=== PATIENT | female | born 1935 | race Caucasian/White ===

== ENCOUNTER 2019-08-04 21:25 | Inpatient (IN) | payer MEDICARE, BC ==
[~2019-08-04] VITALS: Ht 162.6 cm; Wt 63.6 kg
[~2019-08-04 21:25] MED LIST: ALBU8.5H8 INH; ATOR20TA66 PO; CLON-529 PO; CLOP75TA15 PO; DILT-35 PO; FLUT16SP26 BOTHNARES; GABA300C PO; HYDR25TA4 PO; LISI-600 PO; METO-539 PO; MONT10TA24 PO; PANT40TA4 PO; THEO200T22 PO; ZET10T PO
[2019-08-04] MEDS ORDERED: normal saline 1000ml 1,000 ML IV ONE (21:31)
[2019-08-04] MEDS ORDERED: iohexol 350MG/ML 100ml bottle IV ONE (21:31)
[2019-08-04 22:07] LABS: BASOPHILS # (AUTO) 0.1 X10'3 (0-0.2); BASOPHILS % (AUTO) 0.7 % (0-1); EOSINOPHILS # (AUTO) 0.2 X10'3 (0-0.9); EOSINOPHILS % (AUTO) 1.8 % (0-6); HEMATOCRIT 35.1 % (35.0-45.0); HEMOGLOBIN 11.9 g/dl (12.0-16.0); LYMPHOCYTES # (AUTO) 1.8 X10'3 (1.1-4.8); LYMPHOCYTES % (AUTO) 21.5 % (21-51); MEAN CORPUSCULAR HEMOGLOBIN 27.5 PG (27.0-31.0); MEAN CORPUSCULAR VOLUME 80.9 FL (78-98); MEAN PLATELET VOLUME 7.6 FL (7.4-10.4); MONOCYTES # (AUTO) 1.1 X10'3 (0-0.9); MONOCYTES % (AUTO) 13.1 % (2-12); NEUTROPHILS # (AUTO) 5.3 X10'3 (1.8-7.7); NEUTROPHILS % (AUTO) 62.9 % (42-75); PLATELET COUNT 253 X10'3 (140-440); RED BLOOD COUNT 4.34 X10'6 (4.20-5.60); RED CELL DISTRIBUTION WIDTH 15.4 % (11.5-14.5); WHITE BLOOD COUNT 8.5 X10'3 (4.5-11.0)
[2019-08-04 22:15] LABS: PARTIAL THROMBOPLASTIN TIME 30 SECONDS (22-32)
--- NOTE | 2019-08-04 22:18 | NUR ---
ONE HOUR AFTER ARRIVAL IN ER, PT CONDITION UNCHANGED, VSS AND NEURO STATUS STABLE
[2019-08-04 22:20] LABS: ALANINE AMINOTRANSFERASE 10 U/L (12-78); ALBUMIN 3.2 G/DL (3.4-5.0); ALKALINE PHOSPHATASE 87 IU/L (46-116); ANION GAP 8 (8-16); ASPARTATE AMINO TRANSFERASE 12 U/L (10-37); BILIRUBIN,TOTAL 0.4 MG/DL (0.1-1.0); BLOOD UREA NITROGEN 42 MG/DL (7-18); BUN/CREATININE RATIO 35.6 (6.6-38.0); CALCIUM 8.6 MG/DL (8.5-10.1); CHLORIDE 105 MMOL/L (99-107); CREATININE 1.18 MG/DL (0.40-0.90); GLUCOSE 101 MG/DL (70-104); MAGNESIUM 1.7 MG/DL (1.5-2.4); PHOSPHORUS 3.6 MG/DL (2.3-4.5); POTASSIUM 3.8 MMOL/L (3.5-5.1); SODIUM 138 MMOL/L (135-145); TOTAL CARBON DIOXIDE 25.1 MMOL/L (24-32); TOTAL PROTEIN 6.4 G/DL (6.4-8.2); eGFR 44 ML/MIN
[2019-08-04 22:41] LABS: CLARITY,URINE CLEAR (Clear); COLOR,URINE YELLOW (Yellow); GLUCOSE, URINE NEGATIVE (Neg); KETONES,URINE NEGATIVE (Neg); LEUKOCYTE ESTERASE ,URINE TRACE (Neg); NITRITES, URINE NEGATIVE (Neg); OCCULT BLOOD,URINE NEGATIVE (Neg); PH,URINE 5.5 (4.8-8.0); PROTEIN,URINE NEGATIVE (Neg); UROBILINOGEN,URINE 0.2 E.U/dL (0.2-1.0)
[2019-08-04 22:45] LABS: UA COLLECTION TYPE CLN CATCH MIDSTREAM
[2019-08-04 22:46] LABS: BACTERIA,URINE NONE SEEN /HPF (Neg); RBC,URINE NONE SEEN /HPF (0-2); SQUAMOUS EPITHELIAL CELL,UR FEW /LPF (FEW); WBC,URINE 0-4 /HPF (0-4)
--- NOTE | 2019-08-04 23:18 | NUR ---
PT WITH TELE . FAMILY IN THE ROOM
[2019-08-04] MEDS ORDERED: clopidogrel 75mg tablet PO SCH (23:30)
[2019-08-04] MEDS ORDERED: aspirin 81mg tab.chew PO ONE (23:30)
[2019-08-04] MEDS ORDERED: mag hydrox/Alum hydrox/simeth 30ml oral suspension PO ONE (23:50)
[2019-08-05 01:17] LABS: C-REACTIVE PROTEIN 5.08 MG/DL (0.0-0.5)
--- NOTE | 2019-08-05 03:05 | NUR ---
I have received report from Sandra TENORIO and had the opportunity to ask questions and assume patient care.
[2019-08-05 03:30] VITALS: BP 177/73
[2019-08-05] MEDS ORDERED: albuterol 2.5 MG/3 ML nebule NEB PRN (04:00)
[2019-08-05 06:31] VITALS: BP 143/65
--- NOTE | 2019-08-05 06:33 | NUR ---
Problems reprioritized. Patient report given, questions answered & plan of care reviewed with Fiona TENORIO.
[2019-08-05] MEDS ORDERED: pantoprazole 40mg Tablet.DR PO SCH (07:30)
[2019-08-05 08:00] VITALS: BP 114/54
[2019-08-05] MEDS ORDERED: levoFLOXACIN 250mg tablet PO SCH ×2 (08:00→11:00)
[2019-08-05] MEDS ORDERED: atorvastatin 20mg tablet PO SCH (08:00)
[2019-08-05] MEDS: cloNIDine 0.1 mg tablet PO SCH ×2 (08:00→08:11)
[2019-08-05] MEDS ORDERED: montelukast 10mg tablet PO SCH (08:00)
[2019-08-05] MEDS ORDERED: aspirin 81mg tablet.DR PO SCH (08:00)
[2019-08-05] MEDS: lisinopril 20mg tablet PO SCH ×2 (08:00→08:13)
[2019-08-05] MEDS ORDERED: enoxaparin 40mg/0.4ml syringe SQ SCH (08:00)
[2019-08-05] MEDS ORDERED: ezetimibe 10mg tablet PO SCH (08:00)
[2019-08-05] MEDS ORDERED: clopidogrel 75mg tablet PO SCH ×2 (08:00)
[2019-08-05] MEDS ORDERED: HYDROchlorothiazide 25mg tablet PO SCH (08:00)
[2019-08-05] MEDS ORDERED: metoprolol succinate 25mg (24-HOUR) SR. Tablet PO SCH (08:00)
[2019-08-05] MEDS ORDERED: theophylline anhydrous 100mg ER capsule 24-hour PO SCH (08:00)
[2019-08-05] MEDS ORDERED: gabapentin 300mg capsule PO SCH (08:00)
[2019-08-05] MEDS: diltiazem CD 120mg capsule (once-daily) PO SCH ×2 (08:00→08:11)
[2019-08-05 09:20] LABS: CHOL/HDL RATIO 2.6 (0.00-4.99); CHOLESTEROL 147 MG/DL (0-200); HDL CHOLESTEROL 57 MG/DL (35-60); LDL CHOLESTEROL 82 MG/DL (50-100); TRIGLYCERIDES 51 MG/DL (20-135)
[2019-08-05] MEDS ORDERED: magnesium Cl slow-release 64mg tablet PO PRN (09:35)
[2019-08-05] MEDS ORDERED: magnesium 4gm in 100ml NS 100 ML IV PRN (09:35)
[2019-08-05] MEDS ORDERED: potassium Cl 20 mEq SR tablet PO PRN ×2 (09:35)
[2019-08-05] MEDS ORDERED: potassium CL 10mEq/100ml bag 100 ML IV PRN (09:35)
[2019-08-05] MEDS ORDERED: FLU VACC QS 2019-20 (6 MOS UP) 60 MCG/0.5 ML VIAL IMVAC ONE (10:00)
[2019-08-05] MEDS ORDERED: pneumococcal 23-VAL P-sac vacc 25 mcg/0.5ml vial IMVAC ONE (10:00)
--- NOTE | 2019-08-05 10:22 | NUR ---
DM consult: Patient's A1c is 5.6, DM education not warranted at this time. Will continue to follow. Addendum: 08/05/19 at [address] Amended: Links added.
[2019-08-05 10:31] VITALS: BP 123/51
--- NOTE | 2019-08-05 11:31 | NUR ---
per pt's daughter pt currently has a sinus infection and is being treated with abx
[2019-08-05] MEDS ORDERED: ASPI-1071 PO (12:34)
[2019-08-05] MEDS ORDERED: lactobacillus rhamnosus 10,000 MMU CELLS/CAPSULE PO SCH (20:00)
[2019-08-05] MEDS ORDERED: clopidogrel 75mg tablet PO ONE (23:30)
[2019-08-06] MEDS ORDERED: enoxaparin 30mg/0.3ml syringe SQ SCH (08:00)
== END 2019-08-05 14:45 | disposition home or self-care (01) | DRG 153 ==
LOC: ER 21:26 → ED HOLD 08-05 02:25 → ORTHO 4S 08-05 03:31
PROVIDERS: ADMIT Internal Medicine; ATTEND Family Medicine
PROC: B3251ZZ Computerized Tomography (CT Scan) of Bilateral Common Carotid Arteries using Low Osmolar Contrast (ICD-10-PCS; principal; 2019-08-04)
PROC: B32G1ZZ Computerized Tomography (CT Scan) of Bilateral Vertebral Arteries using Low Osmolar Contrast (ICD-10-PCS; 2019-08-04)
PROC: B3281ZZ Computerized Tomography (CT Scan) of Bilateral Internal Carotid Arteries using Low Osmolar Contrast (ICD-10-PCS; 2019-08-04)
DX: J32.8 Other chronic sinusitis (principal); H02.401 Unspecified ptosis of right eyelid; I10 Essential (primary) hypertension; R91.8 Other nonspecific abnormal finding of lung field; J45.909 Unspecified asthma, uncomplicated; I48.91 Unspecified atrial fibrillation; Z95.1 Presence of aortocoronary bypass graft; Z79.02 Long term (current) use of antithrombotics/antiplatelets; Z86.73 Personal history of transient ischemic attack (TIA), and cerebral infarction without residual deficits; Z79.82 Long term (current) use of aspirin
CPT/HCPCS: 36415; 70450; 70496; 70498; 70544; 70551; 71046; 80053; 80061; 81001; 82948; 83036; 83735; 84100; 84484; 85025; 85610; 85651; 85730; 86140; 87081; 87088; 93005; 93306; 94760; 97116; 97161; 97530; 99285; G0378; J1650; Q9967

== ENCOUNTER 2019-08-10 19:48 | Emergency (ER) | payer MEDICARE, BC ==
[~2019-08-10] VITALS: Ht 162.6 cm; Wt 72.7 kg
[~2019-08-10 19:48] MED LIST changes: +ASPI-1071 PO
[2019-08-10 19:56] VITALS: BP 194/80
[2019-08-10 20:12] LABS: BASOPHILS % (AUTO) 0.4 % (0-1); EOSINOPHILS % (AUTO) 0.3 % (0-6); HEMATOCRIT 37.7 % (35.0-45.0); HEMOGLOBIN 12.6 g/dl (12.0-16.0); LYMPHOCYTES # (AUTO) 1.2 X10'3 (1.1-4.8); LYMPHOCYTES % (AUTO) 10.4 % (21-51); MEAN CORPUSCULAR HEMOGLOBIN 26.8 PG (27.0-31.0); MEAN CORPUSCULAR HGB CONC 33.3 g/dL (33.0-36.5); MEAN CORPUSCULAR VOLUME 80.3 FL (78-98); MEAN PLATELET VOLUME 7.4 FL (7.4-10.4); MONOCYTES # (AUTO) 1.3 X10'3 (0-0.9); MONOCYTES % (AUTO) 11.3 % (2-12); NEUTROPHILS # (AUTO) 9.1 X10'3 (1.8-7.7); NEUTROPHILS % (AUTO) 77.6 % (42-75); PLATELET COUNT 314 X10'3 (140-440); RED BLOOD COUNT 4.69 X10'6 (4.20-5.60); RED CELL DISTRIBUTION WIDTH 15.2 % (11.5-14.5); WHITE BLOOD COUNT 11.8 X10'3 (4.5-11.0)
[2019-08-10 20:23] LABS: ALANINE AMINOTRANSFERASE 14 U/L (12-78); ALBUMIN 3.7 G/DL (3.4-5.0); ALKALINE PHOSPHATASE 93 IU/L (46-116); ANION GAP 10 (8-16); ASPARTATE AMINO TRANSFERASE 9 U/L (10-37); BILIRUBIN,TOTAL 0.4 MG/DL (0.1-1.0); BLOOD UREA NITROGEN 23 MG/DL (7-18); BUN/CREATININE RATIO 20.5 (6.6-38.0); CALCIUM 9.4 MG/DL (8.5-10.1); CHLORIDE 104 MMOL/L (99-107); CREATININE 1.12 MG/DL (0.40-0.90); GLUCOSE 130 MG/DL (70-104); LIPASE 171 U/L (73-393); POTASSIUM 3.6 MMOL/L (3.5-5.1); SODIUM 140 MMOL/L (135-145); TOTAL PROTEIN 7.3 G/DL (6.4-8.2); eGFR 47 ML/MIN
[2019-08-10] MEDS ORDERED: ondansetron/PF 4mg/2ml inj IV ONE (20:45)
[2019-08-10] MEDS ORDERED: piperacillin/tazo 3.375gm/50ml 50 ML IV ONE (20:45)
[2019-08-10] MEDS ORDERED: normal saline 1000ML IV soln IV ONE (20:45)
[2019-08-10] MEDS: morphine 4 MG/ML inj SYRINge IV PRN ×2 (20:53→22:29)
--- NOTE | 2019-08-10 21:00 | NUR ---
PT TO CT
--- NOTE | 2019-08-10 21:18 | NUR ---
back from ct
[2019-08-10] MEDS ORDERED: HYDR-3965 PO (22:07)
[2019-08-10] MEDS ORDERED: AMOX-422 PO (22:07)
[2019-08-10] MEDS ORDERED: ONDA4TAB12 PO (22:07)
[2019-08-10 22:24] LABS: URINE HCG NEGATIVE (NEG)
[2019-08-10 22:31] LABS: CLARITY,URINE CLEAR (Clear); COLOR,URINE YELLOW (Yellow); GLUCOSE, URINE NEGATIVE (Neg); KETONES,URINE NEGATIVE (Neg); LEUKOCYTE ESTERASE ,URINE NEGATIVE (Neg); NITRITES, URINE NEGATIVE (Neg); OCCULT BLOOD,URINE NEGATIVE (Neg); PH,URINE 5.5 (4.8-8.0); PROTEIN,URINE NEGATIVE (Neg); UROBILINOGEN,URINE 0.2 E.U/dL (0.2-1.0)
[2019-08-10 22:34] LABS: UA COLLECTION TYPE CLN CATCH MIDSTREAM
== END 2019-08-10 22:59 | disposition home or self-care (01) ==
LOC: ER 19:48
DX: K57.92 Diverticulitis of intestine, part unspecified, without perforation or abscess without bleeding (principal); I48.91 Unspecified atrial fibrillation; I10 Essential (primary) hypertension; J45.909 Unspecified asthma, uncomplicated; Z86.73 Personal history of transient ischemic attack (TIA), and cerebral infarction without residual deficits; Z95.1 Presence of aortocoronary bypass graft; Z79.82 Long term (current) use of aspirin; Z79.899 Other long term (current) drug therapy
CPT/HCPCS: 36415; 74176; 80053; 81003; 81025; 83690; 84145; 85025; 96365; 96375; 96376; 99284; J2270; J2405; J2543; J7030

== ENCOUNTER 2019-08-11 19:08 | Inpatient (IN) | payer MEDICARE, BC ==
[~2019-08-11] VITALS: Ht 165.1 cm; Wt 64.0 kg
[~2019-08-11 19:08] MED LIST changes: +AMOX-422 PO; +HYDR-3965 PO; +ONDA4TAB12 PO
[2019-08-11 19:36] LABS: BASOPHILS % (AUTO) 0.2 % (0-1); EOSINOPHILS % (AUTO) 0 % (0-6); HEMATOCRIT 35.1 % (35.0-45.0); HEMOGLOBIN 11.6 g/dl (12.0-16.0); LYMPHOCYTES # (AUTO) 0.9 X10'3 (1.1-4.8); MEAN CORPUSCULAR HEMOGLOBIN 26.7 PG (27.0-31.0); MEAN PLATELET VOLUME 7.7 FL (7.4-10.4); MONOCYTES # (AUTO) 0.9 X10'3 (0-0.9); MONOCYTES % (AUTO) 4.2 % (2-12); NEUTROPHILS # (AUTO) 19.8 X10'3 (1.8-7.7); NEUTROPHILS % (AUTO) 91.6 % (42-75); PLATELET COUNT 284 X10'3 (140-440); RED BLOOD COUNT 4.33 X10'6 (4.20-5.60); RED CELL DISTRIBUTION WIDTH 15.1 % (11.5-14.5); WHITE BLOOD COUNT 21.7 X10'3 (4.5-11.0)
[2019-08-11 19:53] LABS: ALANINE AMINOTRANSFERASE 15 U/L (12-78); ALBUMIN 2.5 G/DL (3.4-5.0); ALBUMIN/GLOBULIN RATIO 0.7 (1.1-1.5); ALKALINE PHOSPHATASE 62 IU/L (46-116); ANION GAP 8 (8-16); ASPARTATE AMINO TRANSFERASE 17 U/L (10-37); BILIRUBIN,TOTAL 0.8 MG/DL (0.1-1.0); BLOOD UREA NITROGEN 24 MG/DL (7-18); BUN/CREATININE RATIO 20.5 (6.6-38.0); CALCIUM 8.5 MG/DL (8.5-10.1); CHLORIDE 103 MMOL/L (99-107); CREATININE 1.17 MG/DL (0.40-0.90); GLUCOSE 146 MG/DL (70-104); LIPASE 67 U/L (73-393); POTASSIUM 3.8 MMOL/L (3.5-5.1); SODIUM 137 MMOL/L (135-145); TOTAL CARBON DIOXIDE 25.7 MMOL/L (24-32); TOTAL PROTEIN 6.2 G/DL (6.4-8.2); eGFR 44 ML/MIN
[2019-08-11] MEDS ORDERED: piperacillin/tazo 3.375gm/50ml 50 ML IV ONE (21:00)
[2019-08-11] MEDS ORDERED: morphine 4 MG/ML inj SYRINge IV PRN (21:00)
[2019-08-11] MEDS ORDERED: ondansetron/PF 4mg/2ml inj IV ONE (21:00)
[2019-08-11] MEDS ORDERED: normal saline 1000ML IV soln IV ONE (21:00)
[2019-08-11 21:48] LABS: URINE HCG NEGATIVE (NEG)
[2019-08-11 22:00] LABS: CLARITY,URINE CLEAR (Clear); COLOR,URINE AMBER (Yellow); GLUCOSE, URINE NEGATIVE (Neg); KETONES,URINE NEGATIVE (Neg); LEUKOCYTE ESTERASE ,URINE NEGATIVE (Neg); NITRITES, URINE NEGATIVE (Neg); OCCULT BLOOD,URINE NEGATIVE (Neg); PROTEIN,URINE NEGATIVE (Neg); UROBILINOGEN,URINE 0.2 E.U/dL (0.2-1.0)
[2019-08-11 22:02] LABS: UA COLLECTION TYPE STRAIGHT CATH
[2019-08-12] VITALS (7 sets, daily range): BP systolic 110–137; BP diastolic 44–61
[2019-08-12] MEDS ORDERED: ondansetron/PF 4mg/2ml inj IV PRN (00:15)
[2019-08-12] MEDS ORDERED: potassium CL 10mEq/100ml bag 100 ML IV PRN (00:15)
[2019-08-12] MEDS ORDERED: potassium Cl 20 mEq SR tablet PO PRN (00:15)
[2019-08-12] MEDS ORDERED: magnesium 4gm in 100ml NS 100 ML IV PRN (00:15)
[2019-08-12] MEDS ORDERED: magnesium 2GM in 50ml NS 50 ML IV PRN (00:15)
[2019-08-12] MEDS: normal saline 1000ml 1,000 ML IV SCH ×3 (00:40→19:31)
--- NOTE | 2019-08-12 01:25 | NUR ---
Patient in room PCU 3016. I have received report from Joaquim TENORIO and had the opportunity to ask questions and assume patient care.
[2019-08-12] MEDS: pantoprazole 40MG/NS 100ML BAG 100 ML IV SCH ×6 (01:38→23:31)
--- NOTE | 2019-08-12 06:18 | NUR ---
Orientee documentation: I have reviewed and agree with all interventions, assessments performed and documented by Jose TENORIO.
--- NOTE | 2019-08-12 06:32 | NUR ---
Problems reprioritized. Patient report given, questions answered & plan of care reviewed with Celia TENORIO.
--- NOTE | 2019-08-12 06:45 | NUR ---
Patient in room PCU 3016. I have received report from Jose Fowler and had the opportunity to ask questions and assume patient care.
[2019-08-12] MEDS: morphine 2 MG/ML inj. syringe IV PRN ×3 (07:38→16:15)
[2019-08-12] MEDS: piperacillin/tazo 4.5gm/100ml 100 ML IV SCH ×3 (07:38→23:31)
[2019-08-12] MEDS: K and/or MAG REPLACEMENT MC SCH (08:00)
[2019-08-12] MEDS ORDERED: FLU VACC QS 2019-20 (6 MOS UP) 60 MCG/0.5 ML VIAL IMVAC ONE (10:00)
--- NOTE | 2019-08-12 10:21 | NUR ---
Dr May aware that med rec needs to be addressed
--- NOTE | 2019-08-12 10:21 | NUR ---
No labs done today aware
[2019-08-12 12:05] LABS: BASOPHILS % (AUTO) 0.1 % (0-1); EOSINOPHILS % (AUTO) 0.1 % (0-6); HEMATOCRIT 32.4 % (35.0-45.0); HEMOGLOBIN 10.8 g/dl (12.0-16.0); LYMPHOCYTES # (AUTO) 0.9 X10'3 (1.1-4.8); LYMPHOCYTES % (AUTO) 5.2 % (21-51); MEAN CORPUSCULAR HEMOGLOBIN 26.9 PG (27.0-31.0); MEAN CORPUSCULAR HGB CONC 33.3 g/dL (33.0-36.5); MEAN CORPUSCULAR VOLUME 80.9 FL (78-98); MEAN PLATELET VOLUME 7.7 FL (7.4-10.4); MONOCYTES # (AUTO) 0.6 X10'3 (0-0.9); MONOCYTES % (AUTO) 3.7 % (2-12); NEUTROPHILS # (AUTO) 15.2 X10'3 (1.8-7.7); NEUTROPHILS % (AUTO) 90.9 % (42-75); PLATELET COUNT 255 X10'3 (140-440); RED CELL DISTRIBUTION WIDTH 15.2 % (11.5-14.5); WHITE BLOOD COUNT 16.7 X10'3 (4.5-11.0)
[2019-08-12 12:23] LABS: ALANINE AMINOTRANSFERASE 18 U/L (12-78); ALBUMIN 2.4 G/DL (3.4-5.0); ALBUMIN/GLOBULIN RATIO 0.7 (1.1-1.5); ALKALINE PHOSPHATASE 70 IU/L (46-116); ANION GAP 9 (8-16); ASPARTATE AMINO TRANSFERASE 20 U/L (10-37); BILIRUBIN,TOTAL 0.6 MG/DL (0.1-1.0); BLOOD UREA NITROGEN 22 MG/DL (7-18); BUN/CREATININE RATIO 21.6 (6.6-38.0); CALCIUM 8.8 MG/DL (8.5-10.1); CHLORIDE 106 MMOL/L (99-107); CREATININE 1.02 MG/DL (0.40-0.90); GLUCOSE 95 MG/DL (70-104); POTASSIUM 3.4 MMOL/L (3.5-5.1); SODIUM 139 MMOL/L (135-145); TOTAL CARBON DIOXIDE 24.5 MMOL/L (24-32); TOTAL PROTEIN 5.9 G/DL (6.4-8.2); eGFR 52 ML/MIN
[2019-08-12] MEDS: potassium CL 10mEq/100ml bag 100 ML IV PRN ×3 (12:39→15:48)
--- NOTE | 2019-08-12 18:22 | NUR ---
Patient in room PCU 3016I. I have received report from JONA Yang and had the opportunity to ask questions and assume patient care.
--- NOTE | 2019-08-12 18:22 | NUR ---
Problems reprioritized. Patient report given, questions answered & plan of care reviewed with Maritza TENORIO.
[2019-08-12 18:24] LABS: MAGNESIUM 1.4 MG/DL (1.5-2.4); POTASSIUM 3.8 MMOL/L (3.5-5.1)
[2019-08-12] MEDS: gabapentin 300mg capsule PO SCH (19:31)
[2019-08-12] MEDS: magnesium Cl slow-release 64mg tablet PO PRN (19:31)
[2019-08-13] MEDS: morphine 2 MG/ML inj. syringe IV PRN ×2 (00:41→07:59)
[2019-08-13 02:00] VITALS: BP 138/58
[2019-08-13] MEDS: ipratropium/albuterol 3ml nebule NEB PRN ×2 (02:09→15:31)
[2019-08-13] MEDS: pantoprazole 40MG/NS 100ML BAG 100 ML IV SCH ×4 (05:13→20:50)
[2019-08-13] MEDS: normal saline 1000ml 1,000 ML IV SCH ×2 (05:13→15:41)
--- NOTE | 2019-08-13 06:15 | NUR ---
Problems reprioritized. Patient report given, questions answered & plan of care reviewed with JONA Cochran.
[2019-08-13 06:35] LABS: BASOPHILS % (AUTO) 0.2 % (0-1); EOSINOPHILS % (AUTO) 0 % (0-6); HEMATOCRIT 30.8 % (35.0-45.0); HEMOGLOBIN 10.2 g/dl (12.0-16.0); LYMPHOCYTES # (AUTO) 0.6 X10'3 (1.1-4.8); LYMPHOCYTES % (AUTO) 3.9 % (21-51); MEAN CORPUSCULAR HEMOGLOBIN 26.8 PG (27.0-31.0); MEAN CORPUSCULAR HGB CONC 33.3 g/dL (33.0-36.5); MEAN CORPUSCULAR VOLUME 80.6 FL (78-98); MEAN PLATELET VOLUME 8.2 FL (7.4-10.4); MONOCYTES # (AUTO) 0.7 X10'3 (0-0.9); MONOCYTES % (AUTO) 4.5 % (2-12); NEUTROPHILS # (AUTO) 14.2 X10'3 (1.8-7.7); NEUTROPHILS % (AUTO) 91.4 % (42-75); PLATELET COUNT 247 X10'3 (140-440); RED BLOOD COUNT 3.82 X10'6 (4.20-5.60); RED CELL DISTRIBUTION WIDTH 15.5 % (11.5-14.5); WHITE BLOOD COUNT 15.5 X10'3 (4.5-11.0)
[2019-08-13 06:56] LABS: ALBUMIN 2.1 G/DL (3.4-5.0); ANION GAP 11 (8-16); BLOOD UREA NITROGEN 17 MG/DL (7-18); BUN/CREATININE RATIO 16.5 (6.6-38.0); CALCIUM 8.5 MG/DL (8.5-10.1); CHLORIDE 105 MMOL/L (99-107); CREATININE 1.03 MG/DL (0.40-0.90); GLUCOSE 99 MG/DL (70-104); MAGNESIUM 1.4 MG/DL (1.5-2.4); POTASSIUM 3.2 MMOL/L (3.5-5.1); SODIUM 139 MMOL/L (135-145); TOTAL CARBON DIOXIDE 23.3 MMOL/L (24-32); eGFR 51 ML/MIN
[2019-08-13 07:00] VITALS: BP 131/77
[2019-08-13] MEDS ORDERED: pantoprazole 40mg Tablet.DR PO SCH (07:30)
[2019-08-13] MEDS ORDERED: theophylline anhydrous 100mg SR-12hr tablet PO SCH (08:00)
[2019-08-13] MEDS: K and/or MAG REPLACEMENT MC SCH (08:00)
[2019-08-13] MEDS: cloNIDine 0.1 mg tablet PO SCH (08:05)
[2019-08-13] MEDS: piperacillin/tazo 4.5gm/100ml 100 ML IV SCH ×2 (08:05→16:08)
[2019-08-13] MEDS: diltiazem CD 120mg capsule (once-daily) PO SCH (08:05)
[2019-08-13] MEDS: lisinopril 20mg tablet PO SCH (08:06)
[2019-08-13] MEDS: metoprolol succinate 25mg (24-HOUR) SR. Tablet PO SCH (08:06)
[2019-08-13] MEDS: montelukast 10mg tablet PO SCH (08:06)
[2019-08-13] MEDS: gabapentin 300mg capsule PO SCH ×2 (08:06→19:33)
[2019-08-13] MEDS: atorvastatin 20mg tablet PO SCH (08:06)
[2019-08-13] MEDS: potassium Cl 20 mEq SR tablet PO PRN ×2 (08:07→13:24)
[2019-08-13] MEDS: magnesium Cl slow-release 64mg tablet PO PRN (08:07)
[2019-08-13] MEDS: ezetimibe 10mg tablet PO SCH (08:07)
[2019-08-13] MEDS ORDERED: FLU VACC QS 2019-20 (6 MOS UP) 60 MCG/0.5 ML VIAL IMVAC ONE (09:00)
[2019-08-13] MEDS ORDERED: bisacodyl 10mg suppository rectal RC STA (09:12)
[2019-08-13] MEDS ORDERED: magnesium 4gm in 100ml NS 100 ML IV PRN (09:15)
[2019-08-13 11:00] VITALS: BP 114/52
--- NOTE | 2019-08-13 13:09 | NUR ---
promotional table spacer PAGER ID: [phone] MESSAGE: Ronaldo [id number], Josee. Patient is inquiring about lovenox to prevent stoke as Dr. Avila had mentioned it. Please advise. Sammie [phone]
--- NOTE | 2019-08-13 13:14 | NUR ---
Spoke with Dr. May. New order for Lovenox obtained, will continue to order.
[2019-08-13] MEDS: enoxaparin 40mg/0.4ml syringe SUBCUT SCH (13:24)
[2019-08-13] MEDS ORDERED: THEO300C4 PO (13:26)
[2019-08-13 15:00] VITALS: BP 127/53
--- NOTE | 2019-08-13 15:29 | NUR ---
Rm [id number], Josee. Patient needs breathing treatment. Thank you.
[2019-08-13 18:00] VITALS: BP 119/46
--- NOTE | 2019-08-13 18:13 | NUR ---
Problems reprioritized. Patient report given, questions answered & plan of care reviewed with Carmen TENORIO. Patient stable at transfer of care.
--- NOTE | 2019-08-13 18:28 | NUR ---
Patient in room PCU 3016. I have received report from Sammie TENORIO and had the opportunity to ask questions and assume patient care.
[2019-08-13] MEDS: lactobacillus rhamnosus 10,000 MMU CELLS/CAPSULE PO SCH (19:33)
[2019-08-13] MEDS ORDERED: diatr meglu/diatrizoate 30ml oral sol.-(3 dose) bottle PO SCH (21:00)
[2019-08-13 22:00] VITALS: BP 110/44
[2019-08-14] MEDS: piperacillin/tazo 4.5gm/100ml 100 ML IV SCH ×4 (00:41→23:27)
[2019-08-14] MEDS: ipratropium/albuterol 3ml nebule NEB PRN ×2 (00:44→19:42)
[2019-08-14] MEDS: normal saline 1000ml 1,000 ML IV SCH ×2 (00:45→11:37)
[2019-08-14] MEDS: pantoprazole 40MG/NS 100ML BAG 100 ML IV SCH ×5 (01:49→23:27)
[2019-08-14 01:58] VITALS: BP 127/51
[2019-08-14 06:00] VITALS: BP 133/58
--- NOTE | 2019-08-14 06:10 | NUR ---
Problems reprioritized. Patient report given, questions answered & plan of care reviewed with Sammie TENORIO and Melissa TENORIO.
[2019-08-14 06:18] LABS: BASOPHILS % (AUTO) 0.2 % (0-1); EOSINOPHILS % (AUTO) 0 % (0-6); HEMATOCRIT 29.8 % (35.0-45.0); HEMOGLOBIN 9.9 g/dl (12.0-16.0); LYMPHOCYTES # (AUTO) 0.6 X10'3 (1.1-4.8); LYMPHOCYTES % (AUTO) 4.3 % (21-51); MEAN CORPUSCULAR HEMOGLOBIN 26.7 PG (27.0-31.0); MEAN CORPUSCULAR HGB CONC 33.1 g/dL (33.0-36.5); MEAN CORPUSCULAR VOLUME 80.6 FL (78-98); MEAN PLATELET VOLUME 7.8 FL (7.4-10.4); MONOCYTES # (AUTO) 0.6 X10'3 (0-0.9); MONOCYTES % (AUTO) 4.9 % (2-12); NEUTROPHILS # (AUTO) 11.9 X10'3 (1.8-7.7); NEUTROPHILS % (AUTO) 90.6 % (42-75); PLATELET COUNT 254 X10'3 (140-440); RED CELL DISTRIBUTION WIDTH 15.7 % (11.5-14.5); WHITE BLOOD COUNT 13.2 X10'3 (4.5-11.0)
[2019-08-14 06:33] LABS: ALBUMIN 1.9 G/DL (3.4-5.0); ANION GAP 11 (8-16); BLOOD UREA NITROGEN 19 MG/DL (7-18); BUN/CREATININE RATIO 21.8 (6.6-38.0); CALCIUM 8.7 MG/DL (8.5-10.1); CHLORIDE 109 MMOL/L (99-107); CREATININE 0.87 MG/DL (0.40-0.90); GLUCOSE 98 MG/DL (70-104); MAGNESIUM 1.7 MG/DL (1.5-2.4); POTASSIUM 3.5 MMOL/L (3.5-5.1); SODIUM 141 MMOL/L (135-145); TOTAL CARBON DIOXIDE 21.3 MMOL/L (24-32); eGFR 62 ML/MIN
--- NOTE | 2019-08-14 06:59 | NUR ---
Patient in room PCU 3016. I have received report from JONA Morales and had the opportunity to ask questions and assume patient care.
[2019-08-14] MEDS: K and/or MAG REPLACEMENT MC SCH (08:00)
[2019-08-14] MEDS: theophylline anhydrous 100mg ER capsule 24-hour PO SCH (08:00)
[2019-08-14] MEDS: morphine 2 MG/ML inj. syringe IV PRN (08:56)
[2019-08-14] MEDS: cloNIDine 0.1 mg tablet PO SCH (08:57)
[2019-08-14] MEDS: lactobacillus rhamnosus 10,000 MMU CELLS/CAPSULE PO SCH ×2 (08:59→20:02)
[2019-08-14] MEDS: lisinopril 20mg tablet PO SCH (08:59)
[2019-08-14] MEDS: metoprolol succinate 25mg (24-HOUR) SR. Tablet PO SCH (08:59)
[2019-08-14] MEDS: ezetimibe 10mg tablet PO SCH (09:00)
[2019-08-14] MEDS: gabapentin 300mg capsule PO SCH ×2 (09:00→20:02)
[2019-08-14] MEDS: atorvastatin 20mg tablet PO SCH (09:00)
[2019-08-14] MEDS: diltiazem CD 120mg capsule (once-daily) PO SCH (09:00)
[2019-08-14] MEDS: montelukast 10mg tablet PO SCH (09:01)
[2019-08-14] MEDS: enoxaparin 40mg/0.4ml syringe SUBCUT SCH (09:03)
[2019-08-14] MEDS ORDERED: FLU VACC QS 2019-20 (6 MOS UP) 60 MCG/0.5 ML VIAL IMVAC ONE (10:00)
[2019-08-14 11:00] VITALS: BP 115/56
[2019-08-14 15:00] VITALS: BP 120/50
[2019-08-14 18:00] VITALS: BP 133/48
--- NOTE | 2019-08-14 18:18 | NUR ---
Problems reprioritized. Patient report given, questions answered & plan of care reviewed with JONA Morales.
--- NOTE | 2019-08-14 18:47 | NUR ---
Orientee documentation: I have reviewed and agree with interventions, assessments performed and documented by Melissa TENORIO. Orientee Medication Administration: For this medication-pass time frame, medication were reviewed, dispensed, administered and documented per hospital policy by Melissa TENORIO.
[2019-08-14 22:00] VITALS: BP 105/63
[2019-08-15 02:00] VITALS: BP 123/49
[2019-08-15] MEDS: pantoprazole 40MG/NS 100ML BAG 100 ML IV SCH ×3 (02:56→11:00)
[2019-08-15] MEDS: ipratropium/albuterol 3ml nebule NEB PRN (03:54)
[2019-08-15 05:36] LABS: BASOPHILS % (AUTO) 0.3 % (0-1); EOSINOPHILS % (AUTO) 0.1 % (0-6); HEMATOCRIT 30.4 % (35.0-45.0); HEMOGLOBIN 10.3 g/dl (12.0-16.0); LYMPHOCYTES # (AUTO) 0.9 X10'3 (1.1-4.8); LYMPHOCYTES % (AUTO) 10.5 % (21-51); MEAN CORPUSCULAR HGB CONC 33.7 g/dL (33.0-36.5); MEAN CORPUSCULAR VOLUME 80.1 FL (78-98); MEAN PLATELET VOLUME 7.7 FL (7.4-10.4); MONOCYTES # (AUTO) 0.8 X10'3 (0-0.9); MONOCYTES % (AUTO) 8.6 % (2-12); NEUTROPHILS # (AUTO) 7.2 X10'3 (1.8-7.7); NEUTROPHILS % (AUTO) 80.5 % (42-75); PLATELET COUNT 302 X10'3 (140-440); RED CELL DISTRIBUTION WIDTH 15.9 % (11.5-14.5)
[2019-08-15 05:54] LABS: ALBUMIN 1.9 G/DL (3.4-5.0); ANION GAP 10 (8-16); BLOOD UREA NITROGEN 13 MG/DL (7-18); BUN/CREATININE RATIO 13.8 (6.6-38.0); CHLORIDE 106 MMOL/L (99-107); CREATININE 0.94 MG/DL (0.40-0.90); GLUCOSE 130 MG/DL (70-104); MAGNESIUM 1.7 MG/DL (1.5-2.4); SODIUM 140 MMOL/L (135-145); TOTAL CARBON DIOXIDE 23.8 MMOL/L (24-32); eGFR 57 ML/MIN
[2019-08-15 06:00] VITALS: BP 159/63
--- NOTE | 2019-08-15 06:21 | NUR ---
Problems reprioritized. Patient report given, questions answered & plan of care reviewed with Sammie TENORIO and Melissa TENORIO. Addendum: 08/15/19 at 0637 by Melissa Malik RN Patient in room PCU 301. I have received report from JONA Arceo and had the opportunity to ask questions and assume patient care. Addendum: 08/15/19 at 0643 by Melissa Malik RN Patient in room PCU 3016. I have received report from JONA Morales and had the opportunity to ask questions and assume patient care.
--- NOTE | 2019-08-15 06:40 | NUR ---
Patient in room PCU 3016. I have received report from JONA Morales and had the opportunity to ask questions and assume patient care.
[2019-08-15] MEDS ORDERED: potassium Cl 20 mEq SR tablet PO PRN ×2 (06:50)
[2019-08-15] MEDS ORDERED: potassium CL 10mEq/100ml bag 100 ML IV PRN ×2 (06:50)
[2019-08-15] MEDS: theophylline anhydrous 100mg ER capsule 24-hour PO SCH (08:00)
[2019-08-15] MEDS: piperacillin/tazo 4.5gm/100ml 100 ML IV SCH (08:43)
[2019-08-15] MEDS: enoxaparin 40mg/0.4ml syringe SUBCUT SCH (08:44)
[2019-08-15] MEDS: gabapentin 300mg capsule PO SCH (08:45)
[2019-08-15] MEDS: lactobacillus rhamnosus 10,000 MMU CELLS/CAPSULE PO SCH (08:45)
[2019-08-15] MEDS: atorvastatin 20mg tablet PO SCH (08:46)
[2019-08-15] MEDS: ezetimibe 10mg tablet PO SCH (08:46)
[2019-08-15] MEDS: montelukast 10mg tablet PO SCH (08:46)
[2019-08-15] MEDS: morphine 2 MG/ML inj. syringe IV PRN (08:48)
[2019-08-15] MEDS: metoprolol succinate 25mg (24-HOUR) SR. Tablet PO SCH (08:51)
[2019-08-15] MEDS: diltiazem CD 120mg capsule (once-daily) PO SCH (08:51)
[2019-08-15] MEDS: cloNIDine 0.1 mg tablet PO SCH (08:51)
[2019-08-15] MEDS: lisinopril 20mg tablet PO SCH (08:51)
[2019-08-15] MEDS: K and/or MAG REPLACEMENT MC SCH (08:52)
[2019-08-15 11:00] VITALS: BP 113/71
[2019-08-15] MEDS ORDERED: POTA20TA10 PO (12:49)
[2019-08-15] MEDS ORDERED: AMOX-580 PO (12:49)
[2019-08-15] MEDS ORDERED: HYDR-4353 PO (12:49)
--- NOTE | 2019-08-15 13:10 | NUR ---
Dr. Owens requested pt be transferred to 3[facility]Surgical. [facility] notified.
--- NOTE | 2019-08-15 13:15 | NUR ---
PATIENT OK TO DISCHARGE PER DR. HILARIO.
--- NOTE | 2019-08-15 15:59 | NUR ---
Paged Dr. May regarding discontinued medications PAGER ID: [phone] MESSAGE: MERA [id number]: Pt inquiring about discontinued medications. Pt told not to discontinue Plavix due to previous stroke. Kindly advise! - Melissa [phone]
[2019-08-15] MEDS ORDERED: piperacillin/tazo 3.375gm/50ml 50 ML IV SCH (16:00)
--- NOTE | 2019-08-15 16:08 | NUR ---
Pt was discharged at 1607 with aide and family members via wheelchair to home with all personal items. Pt was given discharge paperwork and patient education regarding disease processes and medications. Both IV's were removed with cannula intact. Pt signed discharge and medicare form
== END 2019-08-15 16:16 | disposition home or self-care (01) | DRG 871 ==
LOC: ER 19:09 → PCU 3S 08-12 00:15 → CMPBEDREQ 08-14 20:06
PROVIDERS: ADMIT Internal Medicine; ATTEND Family Medicine
DX: A41.9 Sepsis, unspecified organism (principal); N17.0 Acute kidney failure with tubular necrosis; K57.33 Diverticulitis of large intestine without perforation or abscess with bleeding; I48.92 Unspecified atrial flutter; J98.11 Atelectasis; E78.5 Hyperlipidemia, unspecified; E87.6 Hypokalemia; I10 Essential (primary) hypertension; I25.10 Atherosclerotic heart disease of native coronary artery without angina pectoris; I48.91 Unspecified atrial fibrillation; J44.9 Chronic obstructive pulmonary disease, unspecified; Z79.02 Long term (current) use of antithrombotics/antiplatelets; Z79.82 Long term (current) use of aspirin; Z79.899 Other long term (current) drug therapy; Z86.73 Personal history of transient ischemic attack (TIA), and cerebral infarction without residual deficits; Z90.710 Acquired absence of both cervix and uterus; Z95.1 Presence of aortocoronary bypass graft; Z96.651 Presence of right artificial knee joint; Z23 Encounter for immunization
CPT/HCPCS: 36415; 71045; 74176; 80048; 80053; 81003; 81025; 82948; 83690; 83735; 84132; 84145; 85025; 85610; 87081; 94640; 94667; 94760; 96365; 96375; 97116; 97161; 97530; 99285; C9113; G0378; J1650; J2270; J2405; J2543; J3480; J7030; Q2037

== ENCOUNTER 2019-11-06 08:13 | Day surgery (SDC) | payer MEDICARE, BC ==
[2019-10-31 11:03] LABS: BASOPHILS # (AUTO) 0.1 X10'3 (0-0.2); BASOPHILS % (AUTO) 0.8 % (0-1); EOSINOPHILS # (AUTO) 0.2 X10'3 (0-0.9); EOSINOPHILS % (AUTO) 2.4 % (0-6); LYMPHOCYTES # (AUTO) 2.2 X10'3 (1.1-4.8); LYMPHOCYTES % (AUTO) 27.1 % (21-51); MEAN CORPUSCULAR HGB CONC 33.2 g/dL (33.0-36.5); MEAN CORPUSCULAR VOLUME 78.5 FL (78-98); MEAN PLATELET VOLUME 7.5 FL (7.4-10.4); MONOCYTES # (AUTO) 1.1 X10'3 (0-0.9); MONOCYTES % (AUTO) 14.1 % (2-12); NEUTROPHILS # (AUTO) 4.5 X10'3 (1.8-7.7); NEUTROPHILS % (AUTO) 55.6 % (42-75); PRE OP HEMATOCRIT 34.1 % (35.0-45.0); PRE OP HEMOGLOBIN 11.3 g/dL (12.0-16.0); PRE OP PLATELET COUNT 324 X10'3 (140-440); RED BLOOD COUNT 4.35 X10'6 (4.20-5.60); RED CELL DISTRIBUTION WIDTH 17.3 % (11.5-14.5)
[2019-10-31 11:10] LABS: PRE OP PROTIME 10.2 SECONDS (9.0-12.0)
[2019-10-31 11:47] LABS: ALBUMIN 3.8 G/DL (3.4-5.0); ALBUMIN/GLOBULIN RATIO 1.2 (1.1-1.5); ALKALINE PHOSPHATASE 84 IU/L (46-116); BLOOD UREA NITROGEN 34 MG/DL (7-18); BUN/CREATININE RATIO 26.4 (6.6-38.0); CALCIUM 9.5 MG/DL (8.5-10.1); CHLORIDE 105 MMOL/L (99-107); CREATININE 1.29 MG/DL (0.40-0.90); PRE OP ALT 19 U/L (30-65); PRE OP ANION GAP 6 (8-16); PRE OP AST 17 U/L (10-37); PRE OP BILIRUB, TOTAL 0.5 MG/DL (0.0-1.0); PRE OP GLUCOSE 94 MG/DL (70-104); PRE OP POTASSIUM 4.6 MMOL/L (3.4-5.1); PRE OP SODIUM 141 MMOL/L (135-145); TOTAL CARBON DIOXIDE 30.3 MMOL/L (24-32); eGFR 40 ML/MIN
[2019-11-06] VITALS (19 sets, daily range): BP systolic 66–136; BP diastolic 38–74
[~2019-11-06] VITALS: Ht 165.1 cm; Wt 68.5 kg
[~2019-11-06 08:13] MED LIST changes: -AMOX-422 PO; -ASPI-1071 PO; +ASPI-611 PO; -ATOR20TA66 PO; +ATOR40TA PO; +BUPIVAcaine/PF 2.5mg/ml (0.25%) 10ml vial ONE; -CLON-529 PO; -CLOP75TA15 PO; +CLOP75TA4 PO; +DONE-46 PO; -FLUT16SP26 BOTHNARES; -HYDR-3965 PO; +LIDOcaine 0.5% (5mg/ml) 50ml vial ONE; -METO-539 PO; -MONT10TA24 PO; -ONDA4TAB12 PO; -PANT40TA4 PO; -THEO200T22 PO; +THEO300C4 PO; -ZET10T PO; +[UNRECOGNIZED DRUG - OTHER] PO; +cefazolin/dext.iso 2gm/100ml 100 ML IV ONE; +famotidine 10mg tablet PO ONE; +ringers solution, lacted 1,000 ML IV SCH
[2019-11-06] MEDS ORDERED: LIDOcaine 1% (10mg/ml) 2ml vial ONE (09:03)
[2019-11-06] MEDS ORDERED: ringers solution, lacted 1,000 ML IV SCH (10:17)
[2019-11-06] MEDS ORDERED: fentaNYL/PF 50MCG/1 ML 2ML syringe IV PRN ×2 (10:20)
[2019-11-06] MEDS ORDERED: morphine 4 MG/ML inj SYRINge IV PRN ×2 (10:20)
[2019-11-06] MEDS ORDERED: labetalol 20mg/4ml (5mg/ml) syringe IV PRN (10:20)
[2019-11-06] MEDS ORDERED: hydrALAZINE 20mg/ml inj. IV PRN (10:20)
[2019-11-06] MEDS ORDERED: ondansetron/PF 4mg/2ml inj IV PRN (10:20)
[2019-11-06] MEDS ORDERED: midazolam 2 mg/2 ml injection ONE ×2 (10:58)
[2019-11-06] MEDS ORDERED: fentaNYL/PF 50MCG/1 ML 2ML syringe ONE (10:58)
--- NOTE | 2019-11-06 11:29 | NUR ---
Received from OR via [facility] , accompanied by Anesthesiologist DR LA and report given by Anesthesiolgist. PT DROWSY BUT AROUSES EASILY. EXTREMITIES PINK AND WARM WITH GOOD PULSES. 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 FINGERS HAVE GOOD CAP REFILL.PAIN LEVEL IS AT A 0, PIV LFA PATENT AND RUNNING LR AT 100 ML/HR. XEROFORM, 4X4 AND BIAS DRESSING TO RFA CDI.ABD SOFT , VITALS WNL, RUE ELEVATED WITH ICE APPLIED.
--- NOTE | 2019-11-06 12:50 | NUR ---
PT AWAKE AND ALERT,NO COMPLAINT OF PAIN, HOB ELEVATED AND ICE WATER GIVEN. WITHIN MINUTES VITALS CHANGED DRASTICALLY AND BLOOD NOTED DRIPPING FROM RUE, PRESSURE APPLIED. 1259 ANESTHESIA AND SURGEON CALLED. DR LA RESPONDED, HOB LOWERED, PRESSURE BAG APPLIED TO PIV, BP CUFF APPLIED TOURNIQUET. DR BLANKENSHIP ARRIVED AND DETERMINED PT NEEDED TO GO BACK TO SURGERY FOR BLEEDING CONTROL.
[2019-11-06] MEDS ORDERED: dexamethasone sod phosphate 10mg/ml inj ONE (13:00)
[2019-11-06] MEDS ORDERED: sevoflurane 250ml liquid IH ONE (13:00)
[2019-11-06] MEDS ORDERED: albumin (Human) 5% 250ml 250 ML IV ONE (13:07)
--- NOTE | 2019-11-06 13:23 | NUR ---
PT TRANSFERRED TO OR VIA GURNEY WITH ANESTHESIA FOR BRING BACK CONTROL OF BLEEDING..
[2019-11-06] MEDS ORDERED: ePHEDrine 50MG/ML INJ. ONE (13:42)
[2019-11-06] MEDS ORDERED: ondansetron/PF 4mg/2ml inj ONE (13:43)
[2019-11-06] MEDS ORDERED: LIDOcaine 2% (20mg/ml) 5ml vial ONE (13:43)
[2019-11-06] MEDS ORDERED: propofol inj 20 ML IV ONE (13:43)
--- NOTE | 2019-11-06 13:55 | NUR ---
Received from OR via , accompanied by Anesthesiologist DR LA and report given by Anesthesiolgist. AWAKENS TO VOICE. VITALS STABLE. DRESSING DI. MARIO PAIN.
--- NOTE | 2019-11-06 14:55 | NUR ---
AWAKE AND ORIENTED. VITALS STABLE. DRESSING DI. MARIO PAIN. HOME WITH HER DAUGHTER AT THIS TIME.
== END 2019-11-06 14:55 | disposition home or self-care (01) ==
LOC: PAS 08:13
PROVIDERS: ATTEND Orthopaedic Surgery Hand Surgery
DX: D21.11 Benign neoplasm of connective and other soft tissue of right upper limb, including shoulder (principal); M25.531 Pain in right wrist; L76.32 Postprocedural hematoma of skin and subcutaneous tissue following other procedure; Y83.8 Other surgical procedures as the cause of abnormal reaction of the patient, or of later complication, without mention of misadventure at the time of the procedure; Y92.239 Unspecified place in hospital as the place of occurrence of the external cause
CPT/HCPCS: 10140; 25111; 36415; 80053; 82948; 85025; 85610; 85730; A6222; J1100; J2001; J2250; J2405; J2704; J3010; J3490; J7120; P9045; 88304; A4215; A4618; A6449; A7000

== ENCOUNTER 2020-03-07 12:28 | Emergency (ER) | payer MEDICARE, BC ==
[~2020-03-07] VITALS: Ht 165.1 cm; Wt 68.2 kg
[~2020-03-07 12:28] MED LIST changes: -BUPIVAcaine/PF 2.5mg/ml (0.25%) 10ml vial ONE; -LIDOcaine 0.5% (5mg/ml) 50ml vial ONE; -cefazolin/dext.iso 2gm/100ml 100 ML IV ONE; -famotidine 10mg tablet PO ONE; -ringers solution, lacted 1,000 ML IV SCH
[2020-03-07 14:01] LABS: BASOPHILS # (AUTO) 0.1 X10'3 (0-0.2); EOSINOPHILS # (AUTO) 0.4 X10'3 (0-0.9); EOSINOPHILS % (AUTO) 4.5 % (0-6); HEMATOCRIT 24.7 % (35.0-45.0); HEMOGLOBIN 7.6 g/dl (12.0-16.0); LYMPHOCYTES # (AUTO) 2.4 X10'3 (1.1-4.8); LYMPHOCYTES % (AUTO) 28.6 % (21-51); MEAN CORPUSCULAR HEMOGLOBIN 20.3 PG (27.0-31.0); MEAN CORPUSCULAR HGB CONC 30.8 g/dL (33.0-36.5); MEAN CORPUSCULAR VOLUME 65.8 FL (78-98); MEAN PLATELET VOLUME 7.7 FL (7.4-10.4); MONOCYTES # (AUTO) 0.9 X10'3 (0-0.9); NEUTROPHILS # (AUTO) 4.5 X10'3 (1.8-7.7); NEUTROPHILS % (AUTO) 54.9 % (42-75); PLATELET COUNT 547 X10'3 (140-440); RED BLOOD COUNT 3.75 X10'6 (4.20-5.60); RED CELL DISTRIBUTION WIDTH 17.2 % (11.5-14.5); WHITE BLOOD COUNT 8.2 X10'3 (4.5-11.0)
[2020-03-07 14:09] LABS: CLARITY,URINE SLIGHTLY CLOUDY (Clear); COLOR,URINE YELLOW (Yellow); GLUCOSE, URINE NEGATIVE (Neg); KETONES,URINE NEGATIVE (Neg); LEUKOCYTE ESTERASE ,URINE NEGATIVE (Neg); NITRITES, URINE NEGATIVE (Neg); OCCULT BLOOD,URINE NEGATIVE (Neg); PH,URINE 5.5 (4.8-8.0); PROTEIN,URINE NEGATIVE (Neg); UROBILINOGEN,URINE 0.2 E.U/dL (0.2-1.0)
[2020-03-07 14:14] LABS: ALANINE AMINOTRANSFERASE 9 U/L (12-78); ALBUMIN 3.5 G/DL (3.4-5.0); ALBUMIN/GLOBULIN RATIO 0.9 (1.1-1.5); ALKALINE PHOSPHATASE 82 IU/L (46-116); ANION GAP 11 (8-16); ASPARTATE AMINO TRANSFERASE 14 U/L (10-37); BILIRUBIN,TOTAL 0.2 MG/DL (0.1-1.0); BLOOD UREA NITROGEN 24 MG/DL (7-18); CALCIUM 9.7 MG/DL (8.5-10.1); CHLORIDE 106 MMOL/L (99-107); CREATININE 1.26 MG/DL (0.40-0.90); GLUCOSE 105 MG/DL (70-104); POTASSIUM 4.3 MMOL/L (3.5-5.1); SODIUM 140 MMOL/L (135-145); TOTAL CARBON DIOXIDE 22.9 MMOL/L (24-32); TOTAL PROTEIN 7.5 G/DL (6.4-8.2); eGFR 41 ML/MIN
[2020-03-07 14:16] LABS: UA COLLECTION TYPE CLN CATCH MIDSTREAM
[2020-03-07 14:17] LABS: HYALINE CASTS 0-3 /LPF (NEGATIVE); MUCUS STRANDS FEW /LPF (Neg); SQUAMOUS EPITHELIAL CELL,UR MODERATE /LPF (FEW)
[2020-03-07 14:18] LABS: BACTERIA,URINE 1+ /HPF (Neg); RBC,URINE 0-2 /HPF (0-2); TRANSITIONAL EPI CELLS,URINE FEW /HPF
[2020-03-07 14:40] LABS: ANISOCYTOSIS 1+; ELLIPTOCYTES 1+; MICROCYTOSIS 2+; PLATELET ESTIMATE INCREASED
[2020-03-07 14:41] LABS: HYPOCHROMASIA 1+
[2020-03-07 14:42] LABS: POLYCHROMASIA FEW
[2020-03-07] MEDS ORDERED: CefTRIAXone/D5W-Rocephin 1gm 50 ML IV ONE (15:10)
[2020-03-07] MEDS ORDERED: metroNIDAZOLE-Flagyl 500mg/NS 100 ML IV ONE (15:10)
[2020-03-07] MEDS ORDERED: METR-159 PO (15:51)
[2020-03-07] MEDS ORDERED: CIPR-259 PO (15:51)
[2020-03-07 16:55] VITALS: BP 148/95
== END 2020-03-07 16:58 | disposition home or self-care (01) ==
LOC: ER 12:30
DX: K57.92 Diverticulitis of intestine, part unspecified, without perforation or abscess without bleeding (principal); R10.32 Left lower quadrant pain; I48.91 Unspecified atrial fibrillation; I10 Essential (primary) hypertension; J45.909 Unspecified asthma, uncomplicated; Z86.73 Personal history of transient ischemic attack (TIA), and cerebral infarction without residual deficits; Z90.710 Acquired absence of both cervix and uterus; Z98.890 Other specified postprocedural states; Z79.82 Long term (current) use of aspirin; Z79.2 Long term (current) use of antibiotics; Z79.899 Other long term (current) drug therapy
CPT/HCPCS: 36415; 74176; 80053; 81001; 85025; 87088; 96365; 96366; 96368; 99284; J0696; J3490

== ENCOUNTER 2024-02-22 11:11 | Emergency (ER) | payer MEDICARE, BC ==
[~2024-02-22] VITALS: Ht 167.6 cm; Wt 40.9 kg
[~2024-02-22 11:11] MED LIST changes: +ALBU8.5H17 INH; -ALBU8.5H8 INH; +FERR324T4 PO; -LISI-600 PO; +LISI20TA28 PO; +PANT-47 PO; -[UNRECOGNIZED DRUG - OTHER] PO
[2024-02-22] MEDS ORDERED: METO-539 PO (11:44)
[2024-02-22] MEDS ORDERED: CLON1PAT PO (11:44)
[2024-02-22] MEDS ORDERED: iohexol 300mg/ml 100ml inj. ONE (13:07)
[2024-02-22 13:46] LABS: BASOPHILS % (AUTO) 0.2 % (0-1); EOSINOPHILS # (AUTO) 0.1 X10'3 (0-0.9); EOSINOPHILS % (AUTO) 1.7 % (0-6); HEMATOCRIT 28.1 % (35.0-45.0); HEMOGLOBIN 9.5 g/dl (12.0-16.0); LYMPHOCYTES # (AUTO) 1.7 X10'3 (1.1-4.8); LYMPHOCYTES % (AUTO) 41.2 % (21-51); MEAN CORPUSCULAR HEMOGLOBIN 30.9 PG (27.0-31.0); MEAN CORPUSCULAR HGB CONC 33.6 g/dL (33.0-36.5); MEAN CORPUSCULAR VOLUME 91.9 FL (78-98); MEAN PLATELET VOLUME 6.9 FL (7.4-10.4); MONOCYTES # (AUTO) 0.6 X10'3 (0-0.9); MONOCYTES % (AUTO) 14.2 % (2-12); NEUTROPHILS # (AUTO) 1.8 X10'3 (1.8-7.7); NEUTROPHILS % (AUTO) 42.7 % (42-75); PLATELET COUNT 305 X10'3 (140-440); RED BLOOD COUNT 3.06 X10'6 (4.20-5.60); RED CELL DISTRIBUTION WIDTH 19.4 % (11.5-14.5); WHITE BLOOD COUNT 4.2 X10'3 (4.5-11.0)
[2024-02-22 13:49] VITALS: TEMP 97.3
[2024-02-22 14:01] LABS: ANION GAP 8 (8-16); BLOOD UREA NITROGEN 13 MG/DL (7-18); BUN/CREATININE RATIO 13.5 (10.0-20.0); CHLORIDE 103 MMOL/L (99-107); CREATININE 0.96 MG/DL (0.40-0.90); GLUCOSE 101 MG/DL (70-104); LIPASE 105 U/L (16-77); POTASSIUM 3.6 MMOL/L (3.5-5.1); SODIUM 138 MMOL/L (135-145); TOTAL CARBON DIOXIDE 26.6 MMOL/L (24-32); eCRCL 27 ML/MIN; eGFR 55 ML/MIN
[2024-02-22] MEDS ORDERED: CEPH250T PO (14:08)
[2024-02-22 14:26] LABS: BILIRUBIN,URINE NEGATIVE (Neg); CLARITY,URINE CLEAR (Clear); COLOR,URINE YELLOW (Yellow); GLUCOSE, URINE NEGATIVE (Neg); KETONES,URINE NEGATIVE (Neg); LEUKOCYTE ESTERASE ,URINE NEGATIVE (Neg); NITRITES, URINE NEGATIVE (Neg); OCCULT BLOOD,URINE NEGATIVE (Neg); PROTEIN,URINE NEGATIVE (Neg); UROBILINOGEN,URINE 0.2 E.U/dL (0.2-1.0)
[2024-02-22 14:31] LABS: LARGE PLATELETS FEW; PLATELET ESTIMATE NORMAL
[2024-02-22 14:32] LABS: UA COLLECTION TYPE STRAIGHT CATH
[2024-02-22 14:32] LABS: ANISOCYTOSIS 2+; ELLIPTOCYTES FEW; MICROCYTOSIS 1+
[2024-02-22 18:43] VITALS: BP 125/69; PULSE 62; RESP 16; O2SAT 96
== END 2024-02-22 18:44 | disposition home or self-care (01) ==
LOC: ER 11:12
DX: R62.7 Adult failure to thrive (principal); D64.9 Anemia, unspecified; K85.90 Acute pancreatitis without necrosis or infection, unspecified; E86.0 Dehydration; F03.90 Unspecified dementia, unspecified severity, without behavioral disturbance, psychotic disturbance, mood disturbance, and anxiety; I10 Essential (primary) hypertension; J45.909 Unspecified asthma, uncomplicated; Z86.73 Personal history of transient ischemic attack (TIA), and cerebral infarction without residual deficits; Z90.49 Acquired absence of other specified parts of digestive tract; Z90.710 Acquired absence of both cervix and uterus; Z95.1 Presence of aortocoronary bypass graft; Z95.0 Presence of cardiac pacemaker
CPT/HCPCS: 36415; 71045; 74177; 80048; 81003; 83690; 84484; 85008; 85025; 99285; J3490; Q9967